=== PATIENT | male | born 1990 | race Caucasian/White ===

== ENCOUNTER 2018-12-27 04:10 | Emergency (ER) | payer BC ==
[2018-12-27] MEDS: HYDROCODONE/APAP (10/325) TAB PO (04:54)
== END 2018-12-27 07:14 | disposition home or self-care (01) ==
LOC: FTE 04:10
DX: S20.212A Contusion of left front wall of thorax, initial encounter (principal); F17.210 Nicotine dependence, cigarettes, uncomplicated; V89.2XXA Person injured in unspecified motor-vehicle accident, traffic, initial encounter
CPT/HCPCS: 71100; 73080-RT; 73630-LT; 99284-25